=== PATIENT | female | born 1975 | race American Indian/Alaskan Native ===

== ENCOUNTER 2017-07-18 16:03 | Emergency (ER) | payer BC ==
[2017-07-18 16:08] VITALS: O2SAT 98
[2017-07-18] MEDS ORDERED: Sodium Chloride 0.9% 1,000 ML IV STA (16:24)
--- NOTE | 2017-07-18 16:30 | ED PDOC ---
Syncope/Near Syncope/Dizziness Time Seen by Provider: 07/18/17 16:10 Chief Complaint (Nursing): Dizziness/Lightheaded History Per: Patient (states acute onset of disabling dizziness starting this morning. Patient is experiencing nausea and sensation of vomiting but is hungry at the same time. Symptoms are worse with movement of head in any direction and in some positions. She is okay with lying supine but not prone. She has difficulty focusing on moving objects. When asked patient has had a mild episode that self resolved a few weeks ago. She has also noticed hearing problems in her left ear over the past 2 months where she would noticed acute intermittent episdoes of hearing difficulties. She has not made it to ENT for this. ) History/Exam Limitations: no limitations Onset/Duration Of Symptoms: Sudden Onset Current Symptoms Are (Timing): Still Present Associated Symptoms Preceding Syncopal Episode: No Predromal Symptoms (Sudden Onset) Seizure Or Post-ictal Symptoms: None Possible Causative Factor(s): Vertigo Fall Associated With With Symptoms: No Past Medical History Reviewed: Historical Data, Nursing Documentation, Vital Signs Vital Signs: Last Vital Signs Temp 98.3 F 07/18/17 16:05 Pulse 86 07/18/17 16:05 Resp 16 07/18/17 16:05 BP 155/92 H 07/18/17 16:05 Pulse Ox 98 07/18/17 16:05 - Medical History PMH: HTN Denies: Chronic Kidney Disease - Surgical History Surgical History: No Surg Hx - Family History Family History: States: Unknown Family Hx - Social History Current smoker - smoking cessation education provided: No - Home Medications Home Medications: Ambulatory Orders Medication Instructions Recorded Hydrochlorothiazide 25 mg PO QAM #0 tab 08/06/14 Meclizine [Meclizine*] 25 mg PO Q8 PRN #21 tab 08/06/14 Meclizine [Meclizine*] 25 mg PO TID #30 tab 07/18/17 Ondansetron [Zofran] 4 mg PO Q8H #12 tab 07/18/17 - Allergies Allergies/Adverse Reactions: Allergies Allergy/AdvReac Type Severity Reaction Status Date / Time No Known Allergies Allergy Verified 05/01/16 02:12 Review of Systems ROS Statement: Except As Marked, All Systems Reviewed And Found Negative Constitutional: Negative for: Fever, Chills ENT: Negative for: Ear Pain, Ear Discharge Respiratory: Negative for: Cough, Shortness of Breath Gastrointestinal: Positive for: Nausea. Negative for: Vomiting, Abdominal Pain , Diarrhea Genitourinary Female: Negative for: Dysuria Musculoskeletal: Negative for: Neck Pain Neurological: Positive for: Dizziness. Negative for: Weakness, Numbness, Incoordination, Change in Speech, Confusion, Seizures, Altered Mental Status, Headache Physical Exam - Reviewed Nursing Documentation Reviewed: Yes Vital Signs Reviewed: Yes - Physical Exam Appears: Positive for: Well, Non-toxic, No Acute Distress Head Exam: Positive for: ATRAUMATIC, NORMAL INSPECTION, NORMOCEPHALIC Skin: Positive for: Normal Color, Warm, DRY Eye Exam: Positive for: EOMI, Normal appearance, PERRL ENT: Positive for: TM Is/Are (not visualized on the left - ther is a large amount of moist appearing wax that covering most of the canal. The right TM is completely normal) Neck: Positive for: Normal, Painless ROM Cardiovascular/Chest: Positive for: Regular Rate, Rhythm Respiratory: Positive for: CNT, Normal Breath Sounds Gastrointestinal/Abdominal: Positive for: Normal Exam, Bowel Sounds, Soft Back: Positive for: Normal Inspection Extremity: Positive for: Normal ROM Neurologic/Psych: Positive for: Alert, Oriented - Laboratory Results Result Diagrams: 07/18/17 16:40 07/18/17 16:40 - ECG O2 Sat by Pulse Oximetry: 98 - Progress Condition: Re-examined, Improved Medical Decision Making Medical Decision Making: patient feeling much better after zofran and meclizine. CT findings non acute but will need followup with PCP. Disposition - Clinical Impression Clinical Impression: Vertigo, Cerumen impaction - Patient ED Disposition Is Patient to be Admitted: No Doctor Will See Patient In The: Office Counseled Patient/Family Regarding: Diagnosis, Need For Followup, Rx Given - Disposition Referrals: [facility] [Outside] [facility] [Provider Group] Thom Villegas MD [Staff Provider] - Disposition: Routine/Home Disposition Time: 19:06 Condition: IMPROVED Additional Instructions: Follow up with your doctor regarding the results of the CT scan of the brain. Prescriptions: Meclizine [Meclizine*] 25 mg PO TID #30 tab Ondansetron [Zofran] 4 mg PO Q8H #12 tab Instructions: Vertigo (ED), Cerumen Impaction (ED) Forms: [facility] (Kyrgyz) - POA Present On Arrival: None
[2017-07-18 16:54] LABS: BASO # 0.2 K/uL (0.0-0.2); BASO % 1.6 % (0.0-2.0); EOS # 0.1 K/uL (0.0-0.7); EOS % 1.1 % (0.0-4.0); HEMATOCRIT 36.9 % (34.0-47.0); LYMPH # 2.5 K/uL (1.0-4.3); LYMPH % 23.8 % (20.0-40.0); MEAN CELL VOLUME 76.5 fl (81.0-99.0); MEAN CORPUSCULAR HEMOGLOBIN 25.5 pg (27.0-31.0); MEAN CORPUSCULAR HGB CONC 33.3 g/dL (33.0-37.0); MEAN PLATELET VOLUME 7.7 fl (7.2-11.7); MONO # 0.6 K/uL (0.0-0.8); MONO % 5.9 % (0.0-10.0); NEUT # 7.2 K/uL (1.8-7.0); NEUT % 67.6 % (50.0-75.0); NRBC % 0.1 % (0.0-0.0); WHITE BLOOD COUNT 10.7 K/uL (4.8-10.8)
[2017-07-18 17:06] LABS: BLOOD UREA NITROGEN 10 mg/dl (7-17); CALCIUM 9.3 mg/dL (8.4-10.2); CARBON DIOXIDE 27 mmol/L (22-30); CHLORIDE 102 mmol/L (98-107); GFR AFRICAN-AMERICAN > 60; GLUCOSE,RANDOM 84 mg/dL (65-105); POTASSIUM 3.9 MMOL/L (3.6-5.0); SODIUM 139 mmol/l (132-148)
--- NOTE | 2017-07-18 17:51 | CT ---
PROCEDURE: CT scan brain dated 07/18/2017 HISTORY: Acute severe dizziness/vertigo COMPARISON: No prior study available for comparison TECHNIQUE: Contiguous helical/ transaxial computed tomography images were obtained through the head/brain without intravenous contrast. Radiation dose: Total exam DLP = 1622.79 mGy-cm. This CT exam was performed using one or more of the following dose reduction techniques: Automated exposure control, adjustment of the mA and/or kV according to patient size, and/or use of iterative reconstruction technique. FINDINGS: HEMORRHAGE: No acute parenchymal, subarachnoid or extra-axial hemorrhage. BRAIN: . No evidence of large acute infarct. Suspect minimal chronic periventricular white matter ischemic changes. Ventricular and sulcal size are within range of normal for this patient's stated age. Note made of a slightly enlarged/expanded sella turcica containing CSF. Findings could be due to an incidental arachnoid cyst. . There is also a partially empty sella. Followup nonemergent MRI of the brain could performed further evaluation to exclude other pathology. . VENTRICLES: No obstructive hydrocephalus CALVARIUM: No acute calvarial fracture seen. PARANASAL SINUSES: Frontal sinuses are slightly underpneumatized/ hypoplastic. Remaining visualized paranasal sinuses are well-developed. Small to medium-sized mucous retention cyst or polyp left maxillary sinus. Remaining visualized paranasal sinuses are clear. MASTOID AIR CELLS: Unremarkable as visualized. No inflammatory changes. OTHER FINDINGS: None. IMPRESSION: No acute intracranial hemorrhage. Suspect minimal chronic periventricular white matter ischemic changes Slightly enlarged/expanded sella turcica containing CSF; findings could be secondary to an incidental arachnoid cyst. There is also partially empty sella. See above discussion for additional for details
[2017-07-18 19:17] VITALS: BP 142/95; PULSE 85; RESP 20; TEMP 98.6
--- NOTE | 2017-07-19 09:54 | CARD ---
APPROVED REPORT EKG Measurement Heart [id number] <Conclusion> Normal sinus rhythm Rightward axis Borderline ECG
== END 2017-07-18 19:43 | disposition home or self-care (01) ==
LOC: H.ER 16:03
DX: R42 Dizziness and giddiness (principal); H61.23 Impacted cerumen, bilateral; I10 Essential (primary) hypertension
CPT/HCPCS: 70450; 80048; 81025; 85025; 85651; 93005; 96361; 96374; 99284; J2405; J7040